=== PATIENT | male | born 1980 | race Caucasian/White ===

== ENCOUNTER 2017-10-06 21:08 | Emergency (ER) | payer MEDICAID ==
[2017-10-06] MEDS ORDERED: NORMAL SALINE 1000 ML 1,000 ML IV ONE ×2 (22:02→23:39)
[2017-10-06] MEDS ORDERED: ONDANSETRON HCL INJ/PF 4 MG/2 ML SDV IV ONE (22:02)
[2017-10-06] MEDS ORDERED: ACETAMINOPHEN 325 MG TABLET PO ONE (22:05)
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
[2017-10-06 22:50] LABS: HEMATOCRIT 53.5 % (37.9-51.0); HEMOGLOBIN 17.9 g/dL (13.5-17.0); MEAN CORPUSCULAR HEMOGLOBIN 27.8 pg (27.0-33.4); MEAN CORPUSCULAR HGB CONC 33.6 g/dL (32.0-36.0); MEAN CORPUSCULAR VOLUME 83 fl (80-97); PLATELET COUNT 272 10^3/uL (150-450); RED BLOOD COUNT 6.45 10^6/uL (4.35-5.55); RED CELL DISTRIBUTION WIDTH 14.2 % (11.5-14.0); WHITE BLOOD COUNT 12.8 10^3/uL (4.0-10.5)
--- NOTE | 2017-10-06 23:09 | RADIOLOGY REPORT (SQ) ---
EXAM DESCRIPTION: CHEST 2 VIEWS COMPLETED DATE/TIME: 10/06/2017 10:59 pm REASON FOR STUDY: thoracic PW COMPARISON: None. TECHNIQUE: Frontal and lateral radiographic views of the chest acquired. NUMBER OF VIEWS: Two view. LIMITATIONS: None. FINDINGS: LUNGS AND PLEURA: No opacities, masses or pneumothorax. No pleural effusion. MEDIASTINUM AND HILAR STRUCTURES: No masses or contour abnormalities. HEART AND VASCULAR STRUCTURES: Heart normal size. No evidence for failure. BONES: No acute findings. HARDWARE: None in the chest. OTHER: No other significant finding. IMPRESSION: NO SIGNIFICANT RADIOGRAPHIC FINDING IN THE CHEST. TECHNICAL DOCUMENTATION: JOB ID: [id number] [employer]- All Rights Reserved Reading location - IP/workstation name: [email or web address]
[2017-10-06 23:22] LABS: ABSOLUTE LYMPHOCYTES# (MANUAL) 0.3 10^3/uL (0.5-4.7); ABSOLUTE MONOCYTES # (MANUAL) 0.4 10^3/uL (0.1-1.4); ABSOLUTE NEUTROPHILS# (MANUAL) 12.2 10^3/uL (1.7-8.2); BASOPHILS % (MANUAL) 0 % (0-2); EOSINOPHILS % (MANUAL) 0 % (0-6); LYMPHOCYTES % (MANUAL) 2 % (13-45); MONOCYTES % (MANUAL) 3 % (3-13); SEGMENTED NEUTROPHILS % (MAN) 95 % (42-78); TOTAL CELLS COUNTED 100
[2017-10-06 23:23] LABS: ANISOCYTOSIS SLIGHT; PLATELET COMMENT ADEQUATE; TOXIC GRANULATION SLIGHT
[2017-10-06 23:43] LABS: ALANINE AMINOTRANSFERASE 48 U/L (21-72); ALBUMIN 3.9 g/dL (3.5-5.0); ALKALINE PHOSPHATASE 49 U/L (38-126); ANION GAP 11 (5-19); ASPARTATE AMINO TRANSFERASE 30 U/L (17-59); BILIRUBIN,DIRECT 0.2 mg/dL (0.0-0.4); BILIRUBIN,TOTAL 0.9 mg/dL (0.2-1.3); BLOOD UREA NITROGEN 20 mg/dL (7-20); CALCIUM 9.3 mg/dL (8.4-10.2); CARBON DIOXIDE 23 mmol/L (22-30); CHLORIDE 102 mmol/L (98-107); CREATINE KINASE 172 U/L (55-170); GLUCOSE 104 mg/dL (75-110); LIPASE 116.3 U/L (23-300); POTASSIUM 4.7 mmol/L (3.6-5.0); SODIUM 135.8 mmol/L (137-145); TOTAL PROTEIN 6.7 g/dL (6.3-8.2)
[2017-10-07] MEDS ORDERED: KETOROLAC TROMETHAMINE INJ/PF 30 MG/1 ML SDV IV ONE (00:22)
[2017-10-07] MEDS ORDERED: DIPHENHYDRAMINE HCL 50 MG/ML VIAL IV ONE ×2 (00:22→01:20)
[2017-10-07] MEDS ORDERED: PROCHLORPERAZINE EDISYLATE INJ 10 MG/2 ML VIAL IV ONE (00:22)
[2017-10-07 00:49] LABS: APPEARANCE,URINE CLEAR; BILIRUBIN,URINE NEGATIVE (NEGATIVE); COLOR,URINE YELLOW; GLUCOSE, URINE NEGATIVE (NEGATIVE); KETONES,URINE NEGATIVE (NEGATIVE); LEUKOCYTE ESTERASE,URINE NEGATIVE (NEGATIVE); NITRITE,URINE NEGATIVE (NEGATIVE); PROTEIN,URINE NEGATIVE (NEGATIVE); URINE SPECIFIC GRAVITY 1.011; UROBILINOGEN,URINE NEGATIVE mg/dL (<2.0)
[2017-10-07] MEDS ORDERED: NORMAL SALINE 1000 ML 1,000 ML IV ONE (00:49)
[2017-10-07] MEDS ORDERED: NORMAL SALINE 1000 ML 1,000 ML IV PRN (00:54)
[2017-10-07 01:31] LABS: URINE AMPHETAMINES SCREEN NEGATIVE; URINE BARBITURATES SCREEN NEGATIVE; URINE BENZODIAZEPINES SCREEN NEGATIVE; URINE COCAINE SCREEN NEGATIVE; URINE MARIJUANA (THC) SCREEN NEGATIVE; URINE METHADONE SCREEN UNCONFIRMED POSITIVE; URINE PHENCYCLIDINE SCREEN NEGATIVE
--- NOTE | 2017-10-07 02:00 | RADIOLOGY REPORT (SQ) ---
EXAM DESCRIPTION: CT HEAD WITHOUT CLINICAL HISTORY: MARCOS COMPARISON: None available TECHNIQUE: Axial CT of the head obtained from the skull apex to the skull base without contrast. FINDINGS: No acute intracranial hemorrhage identified. No mass, mass effect, shift of the midline, abnormal extra-axial fluid collection or CT evidence of acute ischemic change identified. The ventricular system is unremarkable. No acute abnormalities of the supratentorial white matter, basal ganglia, cerebellum, or brainstem. The visualized paranasal sinuses and the mastoids are clear. No skull fracture identified. Visualized orbits and globes are unremarkable. DLP:1070.38 mGy-cm IMPRESSION: 1. No acute intracranial abnormality identified. This exam was performed according to our departmental dose-optimization program, which includes automated exposure control, adjustment of the mA and/or kV according to patient size and/or use of iterative reconstruction technique.
--- NOTE | 2017-10-07 02:13 | RADIOLOGY REPORT (SQ) ---
EXAM DESCRIPTION: CT ABDOMEN AND PELVIS WITH CONTRAST CLINICAL HISTORY: LLQ pain, low back pain COMPARISON: 01/11/2013 TECHNIQUE: CT of the abdomen and pelvis performed following IV administration of 90 mL of Isovue-370. Delayed images obtained. DLP: 1345.63 mGycm FINDINGS: Lung Bases: The visualized lung bases are clear. Bones: No destructive bone lesions identified. Intramedullary esequiel in the left femur partially visualized. Abdomen: Liver: The liver has normal size and density. No intrahepatic mass or biliary dilatation. Gallbladder: No calcified gallstones. Spleen, Pancreas, and Adrenal Glands: The spleen, pancreas, and adrenal glands are unremarkable. Kidneys: The kidneys have normal size and contour without evidence of solid mass or hydronephrosis. Small hypodensities are too small fracture CT examination. Minimal nonspecific perinephric fat stranding. Vasculature: The aorta and IVC have normal caliber and position. The portal vein is patent. The proximal visceral and renal arteries are patent. Stomach: The stomach and duodenum have normal course. Other: No free intraperitoneal air. No free fluid or lymphadenopathy. Pelvis: Bladder: Urinary bladder is unremarkable. Bowel: No dilated loops of large or small bowel. Appendix: Normal appendix. Pelvis: Prostate is not enlarged. IMPRESSION: 1. No acute inflammatory or obstructive process identified. This exam was performed according to our departmental dose-optimization program, which includes automated exposure control, adjustment of the mA and/or kV according to patient size and/or use of iterative reconstruction technique.
[2017-10-07 03:40] VITALS: BP 134/51
== END 2017-10-07 03:40 | disposition home or self-care (01) ==
LOC: ER 21:08
DX: S09.90XA Unspecified injury of head, initial encounter (principal); S31.030A Puncture wound without foreign body of lower back and pelvis without penetration into retroperitoneum, initial encounter; R10.32 Left lower quadrant pain; R11.2 Nausea with vomiting, unspecified; W20.8XXA Other cause of strike by thrown, projected or falling object, initial encounter; F17.200 Nicotine dependence, unspecified, uncomplicated; Z88.0 Allergy status to penicillin
CPT/HCPCS: 96376; 99284; 96361; 96374; 96375; 36415; 82550; 83690; 85025; 80053; 81001; 80307; 71046; 70450; 74177; J3490; J1200; J1885; J0780; J2405; J7030 ×2

== ENCOUNTER 2019-08-06 13:44 | Inpatient (IN) | payer SELFPAY ==
[2019-08-06] MEDS ORDERED: NORMAL SALINE 1000 ML 1,000 ML IV ONE (14:11)
--- NOTE | 2019-08-06 14:13 | ER Document Report ---
ED Medical Screen (RME) - General Chief Complaint: Abdominal Pain Stated Complaint: BACK PAIN,ABDOMINAL PAIN,NAUSEA Time Seen by Provider: 08/06/19 14:07 Notes: HPI: 39-year-old male presenting to the emergency department complaining about being concerned he is in rhabdomyolysis. Patient had a heavy workout yesterday and today at the gym and when he went to urinate this morning the urine was "Dr. Diana Brown". Complains of discomfort across the lower abdomen and also in the back. Patient states he felt like this for years ago when he had rhabdomyolysis. Denies chest pain shortness of breath I have greeted and performed a rapid initial assessment of this patient. A comprehensive ED assessment and evaluation of the patient, analysis of test results and completion of the medical decision making process will be conducted by additional ED providers PHYSICAL EXAMINATION: GENERAL: Well-appearing, well-nourished and in mild acute distress. HEAD: Atraumatic, normocephalic. EYES: sclera anicteric, conjunctiva are normal. ENT: Moist mucous membranes. NECK: Normal range of motion LUNGS: Normal work of breathing, clear to auscultation HEART: 2+ radial pulses bilaterally, regular rate and rhythm ABD: limited by positioning for exam in triage. Minimal tenderness across the lower abdomen on palpation EXTREMITIES: no pitting or edema. No cyanosis. NEUROLOGICAL: No focal neurological deficits. Moves all extremities spontaneou sly and on command. PSYCH: Normal mood, normal affect. SKIN: Warm, Dry, normal turgor, no rashes or lesions noted. TRAVEL OUTSIDE OF THE [place] IN LAST 30 DAYS: No - Related Data Allergies/Adverse Reactions: Penicillins Allergy (Verified 08/06/19 14:07) Hives Past Medical History - Past Medical History Cardiac Medical History: Reports: Hx Hypertension Renal/ Medical History: Denies: Hx Peritoneal Dialysis Past Surgical History: Reports: Hx Orthopedic Surgery - left femur, left shoulder - Immunizations Immunizations up to date: Yes Hx Diphtheria, Pertussis, Tetanus Vaccination: Yes Physical Exam - Vital signs Vitals: Temp Pulse Resp BP Pulse Ox 98.1 F 99 18 183/87 H 95 08/06/19 14:02 08/06/19 14:02 08/06/19 14:02 08/06/19 14:02 08/06/19 14:02 Course - Vital Signs Vital signs: Temp Pulse Resp BP Pulse Ox 98.1 F 99 18 183/87 H 95 08/06/19 14:02 08/06/19 14:02 08/06/19 14:02 08/06/19 14:02 08/06/19 14:02
[2019-08-06 14:44] LABS: ABSOLUTE BASOPHILS # (AUTO) 0.1 10^3/uL (0.0-0.2); ABSOLUTE EOSINOPHILS # (AUTO) 0.1 10^3/uL (0.0-0.6); ABSOLUTE LYMPHOCYTES (AUTO) 1.2 10^3/uL (0.5-4.7); ABSOLUTE MONOCYTES (AUTO) 1.2 10^3/uL (0.1-1.4); ABSOLUTE NEUT (AUTO) 15.4 10^3/uL (1.7-8.2); APPEARANCE,URINE CLEAR; BASOPHILS % (AUTO) 0.4 % (0-2); BILIRUBIN,URINE NEGATIVE (NEGATIVE); COLOR,URINE AMBER; EOSINOPHILS % (AUTO) 0.7 % (0-6); GLUCOSE, URINE NEGATIVE (NEGATIVE); HEMATOCRIT 53.1 % (37.9-51.0); HEMOGLOBIN 18.7 g/dL (13.5-17.0); KETONES,URINE NEGATIVE (NEGATIVE); LEUKOCYTE ESTERASE,URINE NEGATIVE (NEGATIVE); LYMPHOCYTES % (AUTO) 6.9 % (13-45); MEAN CORPUSCULAR HEMOGLOBIN 29.3 pg (27.0-33.4); MEAN CORPUSCULAR HGB CONC 35.2 g/dL (32.0-36.0); MEAN CORPUSCULAR VOLUME 83 fl (80-97); MONOCYTES % (AUTO) 6.7 % (3-13); NITRITE,URINE NEGATIVE (NEGATIVE); PLATELET COUNT 208 10^3/uL (150-450); PROTEIN,URINE 100 mg/dL (NEGATIVE); RED BLOOD COUNT 6.38 10^6/uL (4.35-5.55); RED CELL DISTRIBUTION WIDTH 13.9 % (11.5-14.0); SEGMENTED NEUTROPHILS % (AUTO) 85.3 % (42-78); TOTAL CELLS COUNTED % (AUTO) 100 %; URINE SPECIFIC GRAVITY 1.014; UROBILINOGEN,URINE NEGATIVE mg/dL (<2.0)
[2019-08-06 15:06] LABS: ALBUMIN 5.2 g/dL (3.5-5.0); ALKALINE PHOSPHATASE 61 U/L (38-126); ANION GAP 12 (5-19); BILIRUBIN,DIRECT 0.3 mg/dL (0.0-0.4); BILIRUBIN,TOTAL 0.6 mg/dL (0.2-1.3); BLOOD UREA NITROGEN 16 mg/dL (7-20); CALCIUM 9.7 mg/dL (8.4-10.2); CARBON DIOXIDE 29 mmol/L (22-30); CHLORIDE 98 mmol/L (98-107); GLUCOSE 88 mg/dL (75-110); POTASSIUM 4.7 mmol/L (3.6-5.0); TOTAL PROTEIN 8.6 g/dL (6.3-8.2)
[2019-08-06 16:01] LABS: ASPARTATE AMINO TRANSFERASE 2006 U/L (17-59)
[2019-08-06 16:16] LABS: CREATINE KINASE > 160000 U/L (55-170)
[2019-08-06] MEDS ORDERED: NORMAL SALINE 1000 ML 1,000 ML IV PRN ×2 (16:24→17:33)
[2019-08-06] MEDS ORDERED: ONDANSETRON HCL INJ/PF 4 MG/2 ML SDV IV ONE (17:20)
--- NOTE | 2019-08-06 17:22 | ER Document Report ---
ED General - General Chief Complaint: Low Back Pain Stated Complaint: BACK PAIN,ABDOMINAL PAIN,NAUSEA Time Seen by Provider: 08/06/19 14:07 TRAVEL OUTSIDE OF THE [place] IN LAST 30 DAYS: No - HPI Notes: 39-year-old male presenting with muscle soreness after heavy workout in the gym and he also notes that his urine has a dark brown color. He was concerned about this and looked up the symptoms on the Internet and basically diagnosed himself with rhabdomyolysis. He presents now with his for further evaluation. He says he is slightly nauseated but has not vomited. He denies fever. He denies shortness of breath. He has generalized myalgias. 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 He says he has been "clean" for more than 5 years. Denies consumption of alcohol. He vapes daily. Also has a history of hypertension. He says he has been noncompliant with meds for over 6 weeks. Currently working in construction. Notes that he has had surgery on his lower leg for fracture in the past. No other hospitalizations or serious illnesses. - Related Data Allergies/Adverse Reactions: Penicillins Allergy (Verified 08/06/19 14:07) Hives Past Medical History - General Information source: Patient, Relative - Social History Smoking Status: Current Every Day Smoker Chew tobacco use (# tins/day): No Frequency of alcohol use: None Drug Abuse: None Family History: Reviewed & Not Pertinent Patient has suicidal ideation: No Patient has homicidal ideation: No - Past Medical History Cardiac Medical History: Reports: Hx Hypertension Renal/ Medical History: Denies: Hx Peritoneal Dialysis Past Surgical History: Reports: Hx Orthopedic Surgery - left femur, left shoulder - Immunizations Immunizations up to date: Yes Hx Diphtheria, Pertussis, Tetanus Vaccination: Yes Review of Systems - Review of Systems Notes: Constitutional: Negative for fever. HENT: Negative for sore throat. Eyes: Negative for visual changes. Cardiovascular: Negative for chest pain. Respiratory: Negative for shortness of breath. Gastrointestinal: As per HPI. Genitourinary: As per HPI. Musculoskeletal: Generalized myalgias. Skin: Negative for rash. Neurological: Negative for headaches, weakness or numbness. 10 point ROS negative except as marked above and in HPI. Physical Exam - Vital signs Vitals: Temp Pulse Resp BP Pulse Ox 98.1 F 99 18 183/87 H 95 08/06/19 14:02 08/06/19 14:02 08/06/19 14:02 08/06/19 14:02 08/06/19 14:02 - Notes Notes: GENERAL: Well-developed well-nourished appearing in no acute distress. SKIN: Good turgor no rashes. HEAD: Normocephalic atraumatic. EYES: PERRLA. EOMI. Conjunctivae and sclerae clear. EARS: CANALS AND TMS CLEAR. NOSE: CLEAR. MOUTH: Moist mucosa. Good dentition. No stridor or edema. No drooling. NECK: Supple. No masses or thyromegaly. No adenopathy. Carotids 2+ without bruits. No JVD. BACK: Mild diffuse tenderness. CHEST: Respirations unlabored. Breath sounds clear and symmetrical. HEART: Regular rhythm. No murmur gallop or rub. ABDOMEN: Soft nontender without masses, organomegaly or rebound. Bowel sounds normally active. No bruits. GENITALIA: Deferred. EXTREMITIES: No edema. No calf tenderness. Cap refill less than 1.5 seconds. Dorsalis pedis and posterior tibial pulses 3+ and symmetrical. NEUROLOGICAL: GCS 15. Alert and oriented x3. Normal gait. Fluent speech. Cranial nerves II through XII intact. Sensorimotor and cerebellar normal. Normal tone. PSYCHIATRIC: Appropriate affect. Course - Re-evaluation Re-evalutation: 08/06/19 17:21 Patient has obvious exercise-induced rhabdomyolysis. We are hydrating with normal saline. Patient has been accepted for admission to the hospitalist service by Dr. Mayen. - Vital Signs Vital signs: Temp Pulse Resp BP Pulse Ox 98.1 F 99 18 183/87 H 95 08/06/19 14:02 08/06/19 14:02 08/06/19 14:02 08/06/19 14:02 08/06/19 14:02 - Laboratory Result Diagrams: 08/06/19 14:22 08/06/19 14:22 Laboratory results interpreted by me: 08/06/19 08/06/19 08/06/19 14:22 14:22 14:22 WBC 18.0 H RBC 6.38 H Hgb 18.7 H Hct 53.1 H Lymph % (Auto) 6.9 L Absolute Neuts (auto) 15.4 H Seg Neutrophils % 85.3 H AST 2006 H ALT 310 H Creatine Kinase > 981426 H Total Protein 8.6 H Albumin 5.2 H Urine Protein 100 H Urine Blood LARGE H Discharge - Discharge Clinical Impression: Rhabdomyolysis Qualifiers: Rhabdomyolysis type: non-traumatic Qualified Code(s): M62.82 - Rhabdomyolysis Condition: Good Disposition: ADMITTED INPATIENT Admitting Provider: [facility]ble (Hospitalist) Unit Admitted: Medical Floor
[2019-08-06] MEDS ORDERED: IPRATROPIUM/ALBUTEROL 0.5-2.5 MG/3 ML AMPUL NEB PRN (17:34)
[2019-08-06] MEDS ORDERED: TEMAZEPAM 15 MG CAPSULE PO PRN (17:34)
[2019-08-06] MEDS ORDERED: PROMETHAZINE HCL INJ 25 MG/1 ML VIAL IV PRN (17:34)
[2019-08-06] MEDS ORDERED: METOPROLOL TARTRATE PF/INJ 5 MG/5 ML SDV IV PRN (17:51)
--- NOTE | 2019-08-06 17:51 | PDOC H&P ---
History of Present Illness History of Present Illness: MELE ALMEIDA is a 39 year old male past medical history of untreated hypertension presenting to ED complaining of muscle sore and cola colored urine after heavy workout session at the gym. Patient is attending gym regularly but recently but had a stopped for a while and recently went back to gym with a friend where the above did a heavy workout session weight lifting. Patient is stating the following day he started feeling sore around his neck, shoulders, abdomen, lower extremity patient with nausea, he also noted his urine to be turning darker. Patient looked up his symptoms over the Internet and found out that he may have rhabdomyolysis. 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 In ED was found to have a CK level of more than 160,000 and AST of 2000. Ho spitalist consulted for admission. Past Medical History Cardiac Medical History: Reports: Hypertension Past Surgical History Past Surgical History: Reports: Orthopedic Surgery - left femur, left shoulder Social History Smoking Status: Current Every Day Smoker Electronic Cigarette use?: Yes Family History Family History: Reviewed & Not Pertinent Parental Family History Reviewed: Yes Children Family History Reviewed: Yes Sibling(s) Family History Reviewed.: Yes Medication/Allergy Allergies/Adverse Reactions: Penicillins Allergy (Verified 08/06/19 14:07) Hives Review of Systems Review of Systems: As per HPI Physical Exam Vital Signs: Temp Pulse Resp BP Pulse Ox 98.1 F 99 18 183/87 H 95 08/06/19 14:02 08/06/19 14:02 08/06/19 14:02 08/06/19 14:02 08/06/19 14:02 Intake & Output 08/05/19 08/06/19 08/07/19 06:59 06:59 06:59 Intake Total 1000 Balance 1000 Weight 88.9 kg General appearance: PRESENT: no acute distress, well-developed, well-nourished Head exam: PRESENT: atraumatic, normocephalic Respiratory exam: PRESENT: clear to auscultation david. ABSENT: rales, rhonchi, wheezes Cardiovascular exam: PRESENT: RRR. ABSENT: diastolic murmur, rubs, systolic murmur GI/Abdominal exam: PRESENT: normal bowel sounds, soft. ABSENT: distended, guarding, mass, organolmegaly, rebound, tenderness Musculoskeletal exam: PRESENT: tenderness - Tenderness over trapezius, abdominal, biceps, triceps and quadriceps. Neurological exam: PRESENT: alert, awake, oriented to person, oriented to place, oriented to time, oriented to situation, CN II-XII grossly intact. ABSENT: motor sensory deficit Results Laboratory Results: 08/06/19 14:22 08/06/19 14:22 08/06/19 08/06/19 08/06/19 14:22 14:22 14:22 WBC 18.0 H RBC 6.38 H Hgb 18.7 H Hct 53.1 H MCV 83 MCH 29.3 MCHC 35.2 RDW 13.9 Plt Count 208 Seg Neutrophils % 85.3 H Sodium 138.5 Potassium 4.7 Chloride 98 Carbon Dioxide 29 Anion Gap 12 BUN 16 Creatinine 1.06 Est GFR ( Amer) > 60 Glucose 88 Calcium 9.7 Total Bilirubin 0.6 AST 2006 H Alkaline Phosphatase 61 Total Protein 8.6 H Albumin 5.2 H Urine Color MONICA Urine Appearance CLEAR Urine pH 6.0 Ur Specific [place] 1.014 Urine Protein 100 H Urine Glucose (UA) NEGATIVE Urine Ketones NEGATIVE Urine Blood LARGE H Urine Nitrite NEGATIVE Ur Leukocyte Esterase NEGATIVE Urine WBC (Auto) 1 Urine RBC (Auto) 0 08/06/19 14:22 Creatine Kinase > 040107 H Assessment and Plan - Diagnosis (1) Rhabdomyolysis Qualifiers: Rhabdomyolysis type: non-traumatic Qualified Code(s): M62.82 - Rhabdomyolysis Is this a current diagnosis for this admission?: Yes Plan: Due to heavy workout session including heavy lifting. Denies any trauma. Presented with CK level more than 160,000. Admit to IMCU, aggressive volume resuscitation guided by volume status, BMP every 8 hours, monitor electrolytes and replace as needed, monitor liver function, monitor kidney function, strict in and out. (2) Dehydration Is this a current diagnosis for this admission?: Yes Plan: Aggressive volume resuscitation guided by volume status. Monitor vitals. Monitor in and out. (3) Elevated LFTs Is this a current diagnosis for this admission?: Yes Plan: Likely due to rhabdomyolysis. Predominantly AST. Denies any history of hepatitis. Treat underlying rhabdomyolysis. Monitor LFTs.
[2019-08-06] MEDS: TIZANIDINE HCL 4 MG TABLET PO SCH (18:03)
[2019-08-06] MEDS: MORPHINE SULFATE 10 MG/ML INJ IV PRN (18:18)
[2019-08-06 18:30] LABS: URINE AMPHETAMINES SCREEN NEGATIVE; URINE BARBITURATES SCREEN NEGATIVE; URINE BENZODIAZEPINES SCREEN NEGATIVE; URINE COCAINE SCREEN NEGATIVE; URINE MARIJUANA (THC) SCREEN NEGATIVE; URINE PHENCYCLIDINE SCREEN NEGATIVE
[2019-08-06 18:40] LABS: URINE METHADONE SCREEN UNCONFIRMED POSITIVE
[2019-08-06] MEDS: HEPARIN SOD (PORCINE) 5,000 UNIT/ML 1 ML VIAL SUBCUT SCH (21:29)
[2019-08-06] MEDS: HYDROMORPHONE HCL INJ/PF 2 MG/ML AMPULE IV PRN (22:34)
[2019-08-07] MEDS: MORPHINE SULFATE 10 MG/ML INJ IV PRN ×3 (01:45→20:45)
[2019-08-07] MEDS: HYDRALAZINE HCL INJ/PF 20 MG/1 ML SDV IV PRN ×2 (04:42→20:45)
[2019-08-07] MEDS: METHADONE HCL 10 MG TABLET PO SCH (05:11)
[2019-08-07] MEDS: HEPARIN SOD (PORCINE) 5,000 UNIT/ML 1 ML VIAL SUBCUT SCH ×3 (05:12→21:05)
[2019-08-07] MEDS: PANTOPRAZOLE SODIUM 40 MG TABLET.DR PO SCH ×2 (05:16→17:08)
[2019-08-07 06:19] LABS: ABSOLUTE EOSINOPHILS # (AUTO) 0.3 10^3/uL (0.0-0.6); ABSOLUTE LYMPHOCYTES (AUTO) 1.6 10^3/uL (0.5-4.7); ABSOLUTE MONOCYTES (AUTO) 0.6 10^3/uL (0.1-1.4); ABSOLUTE NEUT (AUTO) 7.9 10^3/uL (1.7-8.2); BASOPHILS % (AUTO) 0.4 % (0-2); EOSINOPHILS % (AUTO) 2.9 % (0-6); HEMATOCRIT 50.8 % (37.9-51.0); HEMOGLOBIN 17.6 g/dL (13.5-17.0); LYMPHOCYTES % (AUTO) 15.2 % (13-45); MEAN CORPUSCULAR HEMOGLOBIN 29.1 pg (27.0-33.4); MEAN CORPUSCULAR HGB CONC 34.7 g/dL (32.0-36.0); MEAN CORPUSCULAR VOLUME 84 fl (80-97); PLATELET COUNT 191 10^3/uL (150-450); RED BLOOD COUNT 6.05 10^6/uL (4.35-5.55); RED CELL DISTRIBUTION WIDTH 14.1 % (11.5-14.0); SEGMENTED NEUTROPHILS % (AUTO) 75.5 % (42-78); TOTAL CELLS COUNTED % (AUTO) 100 %; WHITE BLOOD COUNT 10.4 10^3/uL (4.0-10.5)
[2019-08-07 07:29] LABS: BLOOD UREA NITROGEN 14 mg/dL (7-20); CALCIUM 8.9 mg/dL (8.4-10.2); CARBON DIOXIDE 27 mmol/L (22-30); CHLORIDE 106 mmol/L (98-107); GLUCOSE 101 mg/dL (75-110); POTASSIUM 4.1 mmol/L (3.6-5.0)
[2019-08-07 07:53] LABS: ANION GAP 4 (5-19); CREATINE KINASE > 160000 U/L (55-170)
[2019-08-07] MEDS: HYDROMORPHONE HCL INJ/PF 2 MG/ML AMPULE IV PRN ×2 (08:32→22:24)
[2019-08-07] MEDS: TIZANIDINE HCL 4 MG TABLET PO SCH ×3 (09:22→17:08)
--- NOTE | 2019-08-07 10:56 | PDOC PROGRESS REPORT ---
Subjective Progress Note for:: 08/07/19 Subjective:: MELE ALMEIDA is a 39 year old male past medical history of untreated hypertension presenting to ED complaining of muscle sore and cola colored urine after heavy workout session at the gym. Patient is attending gym regularly but recently but had a stopped for a while and recently went back to gym with a friend where the above did a heavy workout session weight lifting. Patient is stating the following day he started feeling sore around his neck, shoulders, abdomen, lower extremity patient with nausea, he also noted his urine to be turning darker. Patient looked up his symptoms over the Internet and found out that he may have rhabdomyolysis. 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 In ED was found to have a CK level of more than 160,000 and AST of 2000. Hospitalist consulted for admission. 08/07/2019. Overnight patient's fluid had to be lowered as he had reported that he was feeling a bit puffy, this morning resting in bed in no apparent distress, complaining of persistent generalized muscle sore, having normal bowel and bladder movements, denies any fever, chills, nausea, vomiting, diarrhea, constipation or any urinary symptoms. Reason For Visit: RHABDOMYOLYSIS, ELEVATED LFTS Physical Exam Vital Signs: Temp Pulse Resp BP Pulse Ox 97.9 F 59 L 17 138/71 H 99 08/07/19 04:00 08/07/19 07:00 08/07/19 04:00 08/07/19 05:20 08/07/19 04:00 Intake & Output 08/06/19 08/07/19 08/08/19 06:59 06:59 06:59 Intake Total 1999 Output Total 925 Balance 1075 Weight 87.1 kg General appearance: PRESENT: no acute distress, well-developed, well-nourished Head exam: PRESENT: atraumatic, normocephalic Respiratory exam: PRESENT: clear to auscultation david. ABSENT: rales, rhonchi, wheezes Cardiovascular exam: PRESENT: RRR. ABSENT: diastolic murmur, rubs, systolic murmur GI/Abdominal exam: PRESENT: normal bowel sounds, soft. ABSENT: distended, guarding, mass, organolmegaly, rebound, tenderness Musculoskeletal exam: PRESENT: tenderness - Generalized Neurological exam: PRESENT: alert, awake, oriented to person, oriented to place, oriented to time, oriented to situation, CN II-XII grossly intact. ABSENT: motor sensory deficit Skin exam: PRESENT: dry, intact, warm. ABSENT: cyanosis, rash Results Laboratory Results: 08/07/19 04:25 08/07/19 04:25 08/06/19 08/06/19 08/06/19 14:22 14:22 14:22 WBC 18.0 H RBC 6.38 H Hgb 18.7 H Hct 53.1 H MCV 83 MCH 29.3 MCHC 35.2 RDW 13.9 Plt Count 208 Seg Neutrophils % 85.3 H Sodium 138.5 Potassium 4.7 Chloride 98 Carbon Dioxide 29 Anion Gap 12 BUN 16 Creatinine 1.06 Est GFR ( Amer) > 60 Glucose 88 Calcium 9.7 Total Bilirubin 0.6 AST 2006 H Alkaline Phosphatase 61 Total Protein 8.6 H Albumin 5.2 H Urine Color MONICA Urine Appearance CLEAR Urine pH 6.0 Ur Specific [place] 1.014 Urine Protein 100 H Urine Glucose (UA) NEGATIVE Urine Ketones NEGATIVE Urine Blood LARGE H Urine Nitrite NEGATIVE Ur Leukocyte Esterase NEGATIVE Urine WBC (Auto) 1 Urine RBC (Auto) 0 08/07/19 08/07/19 04:25 04:25 WBC 10.4 RBC 6.05 H Hgb 17.6 H Hct 50.8 MCV 84 MCH 29.1 MCHC 34.7 RDW 14.1 H Plt Count 191 Seg Neutrophils % 75.5 Sodium 137.3 Potassium 4.1 Chloride 106 Carbon Dioxide 27 Anion Gap 4 L BUN 14 Creatinine 1.02 Est GFR ( Amer) > 60 Glucose 101 Calcium 8.9 Total Bilirubin AST Alkaline Phosphatase Total Protein Albumin Urine Color Urine Appearance Urine pH Ur Specific [place] Urine Protein Urine Glucose (UA) Urine Ketones Urine Blood Urine Nitrite Ur Leukocyte Esterase Urine WBC (Auto) Urine RBC (Auto) 08/06/19 08/07/19 08/07/19 14:22 04:25 04:25 Creatine Kinase > 152143 H > 899575 H CK-MB (CK-2) 21.50 H Assessment and Plan - Diagnosis (1) Rhabdomyolysis Qualifiers: Rhabdomyolysis type: non-traumatic Qualified Code(s): M62.82 - Rhabdomyolysis Is this a current diagnosis for this admission?: Yes Plan: Due to heavy workout session including heavy lifting. Denies any trauma. Presented with CK level >160,000. CK level is still read as >160,000. Probably much higher in reality. CBC CMP WNL. Renal function WNL. Adequate urine output. Continue aggressive volume resuscitation guided by volume status Monitor electrolytes and replace as needed. Monitor liver function. Monitor kidney function. Strict in and out. (2) Dehydration Is this a current diagnosis for this admission?: Yes Plan: Volume replete. Continue volume resuscitation guided by volume status. Monitor vitals. Monitor in and out. (3) Elevated LFTs Is this a current diagnosis for this admission?: Yes Plan: Likely due to rhabdomyolysis. Predominantly AST. Denies any history of hepatitis. Treat underlying rhabdomyolysis. Monitor LFTs.
[2019-08-07 13:48] LABS: ALBUMIN 3.8 g/dL (3.5-5.0); ALKALINE PHOSPHATASE 45 U/L (38-126); BILIRUBIN,DIRECT 0.3 mg/dL (0.0-0.4); BILIRUBIN,TOTAL 0.5 mg/dL (0.2-1.3); TOTAL PROTEIN 6.8 g/dL (6.3-8.2)
[2019-08-07 14:04] LABS: ASPARTATE AMINO TRANSFERASE 2489 U/L (17-59)
[2019-08-07] MEDS: NORMAL SALINE 1000 ML 1,000 ML IV PRN ×2 (14:15→17:04)
[2019-08-08] MEDS: NORMAL SALINE 1000 ML 1,000 ML IV PRN ×4 (04:35→23:58)
[2019-08-08] MEDS: HYDROMORPHONE HCL INJ/PF 2 MG/ML AMPULE IV PRN ×3 (04:35→23:57)
[2019-08-08] MEDS: HYDRALAZINE HCL INJ/PF 20 MG/1 ML SDV IV PRN ×2 (04:36→23:57)
[2019-08-08] MEDS: METHADONE HCL 10 MG TABLET PO SCH (05:26)
[2019-08-08] MEDS: HEPARIN SOD (PORCINE) 5,000 UNIT/ML 1 ML VIAL SUBCUT SCH ×3 (05:27→21:27)
[2019-08-08 06:09] LABS: HEMATOCRIT 47.9 % (37.9-51.0); HEMOGLOBIN 16.6 g/dL (13.5-17.0); MEAN CORPUSCULAR HGB CONC 34.6 g/dL (32.0-36.0); MEAN CORPUSCULAR VOLUME 84 fl (80-97); PLATELET COUNT 157 10^3/uL (150-450); RED BLOOD COUNT 5.71 10^6/uL (4.35-5.55); RED CELL DISTRIBUTION WIDTH 13.8 % (11.5-14.0); WHITE BLOOD COUNT 7.1 10^3/uL (4.0-10.5)
[2019-08-08 06:32] LABS: ALBUMIN 3.6 g/dL (3.5-5.0); ALKALINE PHOSPHATASE 44 U/L (38-126); ANION GAP 7 (5-19); BILIRUBIN,DIRECT 0.3 mg/dL (0.0-0.4); BILIRUBIN,TOTAL 0.3 mg/dL (0.2-1.3); BLOOD UREA NITROGEN 10 mg/dL (7-20); CALCIUM 9.6 mg/dL (8.4-10.2); CARBON DIOXIDE 27 mmol/L (22-30); CHLORIDE 107 mmol/L (98-107); GLUCOSE 117 mg/dL (75-110); POTASSIUM 4.4 mmol/L (3.6-5.0); TOTAL PROTEIN 6.3 g/dL (6.3-8.2)
[2019-08-08] MEDS: PANTOPRAZOLE SODIUM 40 MG TABLET.DR PO SCH ×2 (06:42→17:13)
[2019-08-08 07:13] LABS: ASPARTATE AMINO TRANSFERASE 1389 U/L (17-59)
[2019-08-08 07:23] LABS: CREATINE KINASE 92429 U/L (55-170)
[2019-08-08] MEDS: MORPHINE SULFATE 10 MG/ML INJ IV PRN (08:05)
[2019-08-08] MEDS: TIZANIDINE HCL 4 MG TABLET PO SCH ×3 (09:51→17:13)
--- NOTE | 2019-08-08 11:55 | PDOC PROGRESS REPORT ---
Subjective Progress Note for:: 08/08/19 Subjective:: MELE ALMEIDA is a 39 year old male past medical history of untreated hypertension presenting to ED complaining of muscle sore and cola colored urine after heavy workout session at the gym. Patient is attending gym regularly but recently but had a stopped for a while and recently went back to gym with a friend where the above did a heavy workout session weight lifting. Patient is stating the following day he started feeling sore around his neck, shoulders, abdomen, lower extremity patient with nausea, he also noted his urine to be turning darker. Patient looked up his symptoms over the Internet and found out that he may have rhabdomyolysis. 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 In ED was found to have a CK level of more than 160,000 and AST of 2000. Hospitalist consulted for admission. 08/07/2019. Overnight patient's fluid had to be lowered as he had reported that he was feeling a bit puffy, this morning resting in bed in no apparent distress, complaining of persistent generalized muscle sore, having normal bowel and bladder movements, denies any fever, chills, nausea, vomiting, diarrhea, constipation or any urinary symptoms. 08/08/2019. No acute events overnight. Patient stating that he could not sleep much due to pain otherwise denies any fever, chills, nausea, vomiting, diarrhea, constipation or any urinary symptoms. P.o. tolerant. Having normal bowel and bladder movements. Reason For Visit: RHABDOMYOLYSIS, ELEVATED LFTS Physical Exam Vital Signs: Temp Pulse Resp BP Pulse Ox 98.6 F 79 16 144/94 H 93 08/08/19 07:46 08/08/19 07:46 08/08/19 07:46 08/08/19 07:46 08/08/19 07:46 Intake & Output 08/07/19 08/08/19 08/09/19 06:59 06:59 07:59 Intake Total 1999 2718 1000 Output Total 925 1625 Balance 1075 1093 1000 Weight 87.1 kg 91.8 kg General appearance: PRESENT: no acute distress, well-developed, well-nourished Head exam: PRESENT: atraumatic, normocephalic Respiratory exam: PRESENT: clear to auscultation david. ABSENT: rales, rhonchi, wheezes Cardiovascular exam: PRESENT: RRR. ABSENT: diastolic murmur, rubs, systolic murmur GI/Abdominal exam: PRESENT: normal bowel sounds, soft. ABSENT: distended, guarding, mass, organolmegaly, rebound, tenderness Extremities exam: PRESENT: full ROM, tenderness. ABSENT: calf tenderness, clubbing, pedal edema Neurological exam: PRESENT: alert, awake, oriented to person, oriented to place, oriented to time, oriented to situation, CN II-XII grossly intact. ABSENT: motor sensory deficit Results Laboratory Results: 08/08/19 05:27 08/08/19 05:27 08/07/19 08/08/19 08/08/19 04:25 05:27 05:27 WBC 7.1 RBC 5.71 H Hgb 16.6 Hct 47.9 MCV 84 MCH 29.0 MCHC 34.6 RDW 13.8 Plt Count 157 Sodium 141.4 Potassium 4.4 Chloride 107 Carbon Dioxide 27 Anion Gap 7 BUN 10 Creatinine 0.78 Est GFR ( Amer) > 60 Glucose 117 H Calcium 9.6 Total Bilirubin 0.5 0.3 AST 2489 H 1389 H Alkaline Phosphatase 45 44 Total Protein 6.8 6.3 Albumin 3.8 3.6 08/06/19 08/07/19 08/07/19 14:22 04:25 04:25 Creatine Kinase > 444210 H > 252183 H CK-MB (CK-2) 21.50 H 08/08/19 05:27 Creatine Kinase 35229 H CK-MB (CK-2) Assessment and Plan - Diagnosis (1) Rhabdomyolysis Qualifiers: Rhabdomyolysis type: non-traumatic Qualified Code(s): M62.82 - Rhabdomyolysis Is this a current diagnosis for this admission?: Yes Plan: Due to heavy workout session including heavy lifting. Denies any trauma. Presented with CK level >160,000. CK trending down. CBC CMP WNL. Renal function WNL. Adequate urine output. Continue aggressive volume resuscitation guided by volume status Monitor electrolytes and replace as needed. Monitor liver function. Monitor kidney function. Strict in and out. (2) Elevated LFTs Is this a current diagnosis for this admission?: Yes Plan: Likely due to rhabdomyolysis. Predominantly AST. Presented with AST of 2005. LFTs are trending down. Denies any history of hepatitis. Monitor LFTs. LFTs tomorrow. (3) Dehydration Is this a current diagnosis for this admission?: Yes Plan: Volume replete. Continue volume resuscitation guided by volume status. Monitor vitals. Monitor in and out.
[2019-08-08] MEDS: MELATONIN 5 MG TABLET PO SCH (21:27)
[2019-08-08] MEDS: DIPHENHYDRAMINE HCL 25 MG CAPSULE PO PRN (23:51)
[2019-08-09] MEDS: METHADONE HCL 10 MG TABLET PO SCH (05:18)
[2019-08-09] MEDS: HEPARIN SOD (PORCINE) 5,000 UNIT/ML 1 ML VIAL SUBCUT SCH ×3 (05:19→23:03)
[2019-08-09] MEDS: PANTOPRAZOLE SODIUM 40 MG TABLET.DR PO SCH ×2 (06:25→17:12)
[2019-08-09] MEDS: NORMAL SALINE 1000 ML 1,000 ML IV PRN ×2 (06:25→12:09)
[2019-08-09 06:34] LABS: ALBUMIN 3.6 g/dL (3.5-5.0); ALKALINE PHOSPHATASE 39 U/L (38-126); ANION GAP 6 (5-19); BILIRUBIN,DIRECT 0.1 mg/dL (0.0-0.4); BILIRUBIN,TOTAL 0.3 mg/dL (0.2-1.3); BLOOD UREA NITROGEN 10 mg/dL (7-20); CALCIUM 9.4 mg/dL (8.4-10.2); CARBON DIOXIDE 26 mmol/L (22-30); CHLORIDE 108 mmol/L (98-107); GLUCOSE 102 mg/dL (75-110); POTASSIUM 4.3 mmol/L (3.6-5.0); TOTAL PROTEIN 6.1 g/dL (6.3-8.2)
[2019-08-09 07:09] LABS: ASPARTATE AMINO TRANSFERASE 1108 U/L (17-59)
[2019-08-09 07:10] LABS: CREATINE KINASE 69000 U/L (55-170)
[2019-08-09] MEDS: TIZANIDINE HCL 4 MG TABLET PO SCH ×3 (09:40→17:37)
--- NOTE | 2019-08-09 11:03 | PDOC PROGRESS REPORT ---
Subjective Progress Note for:: 08/09/19 Subjective:: MELE ALMEIDA is a 39 year old male past medical history of untreated hypertension presenting to ED complaining of muscle sore and cola colored urine after heavy workout session at the gym. Patient is attending gym regularly but recently but had a stopped for a while and recently went back to gym with a friend where the above did a heavy workout session weight lifting. Patient is stating the following day he started feeling sore around his neck, shoulders, abdomen, lower extremity patient with nausea, he also noted his urine to be turning darker. Patient looked up his symptoms over the Internet and found out that he may have rhabdomyolysis. 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 In ED was found to have a CK level of more than 160,000 and AST of 2000. Hospitalist consulted for admission. 08/07/2019. Overnight patient's fluid had to be lowered as he had reported that he was feeling a bit puffy, this morning resting in bed in no apparent distress, complaining of persistent generalized muscle sore, having normal bowel and bladder movements, denies any fever, chills, nausea, vomiting, diarrhea, constipation or any urinary symptoms. 08/08/2019. No acute events overnight. Patient stating that he could not sleep much due to pain otherwise denies any fever, chills, nausea, vomiting, diarrhea, constipation or any urinary symptoms. P.o. tolerant. Having normal bowel and bladder movements. 08/09/2019. No acute events overnight. Was able to sleep better last night as per generalized muscle so improving, in no apparent distress, denies any fever, chills, nausea, vomiting, diarrhea, constipation or any urinary symptoms. P.o. tolerant. Ambulatory. Having normal bowel and bladder movements. Reason For Visit: RHABDOMYOLYSIS, ELEVATED LFTS Physical Exam Vital Signs: Temp Pulse Resp BP Pulse Ox 98.0 F 56 L 18 150/48 H 96 08/09/19 09:43 08/09/19 09:43 08/09/19 09:43 08/09/19 09:43 08/09/19 09:43 Intake & Output 08/08/19 08/09/19 08/10/19 05:59 06:59 06:59 Intake Total Output Total Balance Weight General appearance: PRESENT: no acute distress, well-developed, well-nourished Head exam: PRESENT: atraumatic, normocephalic Respiratory exam: PRESENT: clear to auscultation david. ABSENT: rales, rhonchi, wheezes Cardiovascular exam: PRESENT: RRR. ABSENT: diastolic murmur, rubs, systolic murmur GI/Abdominal exam: PRESENT: normal bowel sounds, soft. ABSENT: distended, guarding, mass, organolmegaly, rebound, tenderness Musculoskeletal exam: PRESENT: tenderness Neurological exam: PRESENT: alert, awake, oriented to person, oriented to place, oriented to time, oriented to situation, CN II-XII grossly intact. ABSENT: motor sensory deficit Results Laboratory Results: 08/08/19 05:27 08/09/19 04:58 08/09/19 04:58 Sodium 140.2 Potassium 4.3 Chloride 108 H Carbon Dioxide 26 Anion Gap 6 BUN 10 Creatinine 0.80 Est GFR ( Amer) > 60 Glucose 102 Calcium 9.4 Total Bilirubin 0.3 AST 1108 H Alkaline Phosphatase 39 Total Protein 6.1 L Albumin 3.6 08/06/19 08/07/19 08/07/19 14:22 04:25 04:25 Creatine Kinase > 330278 H > 418896 H CK-MB (CK-2) 21.50 H 08/08/19 08/09/19 05:27 04:58 Creatine Kinase 16047 H 08417 H CK-MB (CK-2) Assessment and Plan - Diagnosis (1) Rhabdomyolysis Qualifiers: Rhabdomyolysis type: non-traumatic Qualified Code(s): M62.82 - Rhabdomy olysis Is this a current diagnosis for this admission?: Yes Plan: Due to heavy workout session including heavy lifting. Denies any trauma. Presented with CK level >160,000. CK trending down. CBC CMP WNL. Renal function WNL. Adequate urine output. Continue aggressive volume resuscitation guided by volume status Monitor electrolytes and replace as needed. Monitor liver function. Monitor kidney function. Strict in and out. (2) Elevated LFTs Is this a current diagnosis for this admission?: Yes Plan: Likely due to rhabdomyolysis. Predominantly AST. Presented with AST of 2005. LFTs are trending down. Denies any history of hepatitis. Monitor LFTs. LFTs tomorrow. (3) Dehydration Is this a current diagnosis for this admission?: Yes Plan: Volume replete. Continue volume resuscitation guided by volume status. Monitor vitals. Monitor in and out.
[2019-08-09] MEDS: MORPHINE SULFATE 10 MG/ML INJ IV PRN ×2 (12:08→18:22)
[2019-08-09] MEDS: HYDRALAZINE HCL INJ/PF 20 MG/1 ML SDV IV PRN (13:42)
[2019-08-09] MEDS: HYDROMORPHONE HCL INJ/PF 2 MG/ML AMPULE IV PRN (14:42)
[2019-08-09] MEDS ORDERED: KETOROLAC TROMETHAMINE INJ/PF 30 MG/1 ML SDV ONE (15:03)
[2019-08-09] MEDS ORDERED: KETOROLAC TROMETHAMINE INJ/PF 30 MG/1 ML SDV IV ONE (15:15)
[2019-08-09] MEDS ORDERED: LABETALOL HCL INJ 20 MG/4 ML DISP.SYRIN IV ONE ×2 (17:00→17:15)
[2019-08-09] MEDS: ONDANSETRON HCL INJ/PF 4 MG/2 ML SDV IV PRN (17:14)
[2019-08-09] MEDS ORDERED: LABETALOL HCL INJ 20 MG/4 ML DISP.SYRIN IV PRN ×3 (18:27→23:14)
[2019-08-09] MEDS ORDERED: NORMAL SALINE 1000 ML 1,000 ML IV PRN ×3 (18:28→23:13)
[2019-08-09] MEDS ORDERED: AMLODIPINE BESYLATE 2.5 MG TABLET PO ONE (18:45)
[2019-08-09] MEDS: MELATONIN 5 MG TABLET PO SCH (22:55)
[2019-08-09] MEDS: DIPHENHYDRAMINE HCL 25 MG CAPSULE PO PRN (22:55)
[2019-08-10] MEDS ORDERED: HYDROMORPHONE HCL INJ/PF 2 MG/ML AMPULE IV PRN (00:30)
[2019-08-10] MEDS: METHADONE HCL 10 MG TABLET PO SCH (03:52)
[2019-08-10 05:31] LABS: ALBUMIN 3.8 g/dL (3.5-5.0); ALKALINE PHOSPHATASE 48 U/L (38-126); ANION GAP 6 (5-19); BILIRUBIN,TOTAL 0.5 mg/dL (0.2-1.3); BLOOD UREA NITROGEN 9 mg/dL (7-20); CARBON DIOXIDE 30 mmol/L (22-30); CHLORIDE 103 mmol/L (98-107); GLUCOSE 105 mg/dL (75-110); POTASSIUM 4.4 mmol/L (3.6-5.0); TOTAL PROTEIN 6.5 g/dL (6.3-8.2)
[2019-08-10 05:38] LABS: ASPARTATE AMINO TRANSFERASE 735 U/L (17-59)
[2019-08-10 05:50] LABS: CREATINE KINASE 28179 U/L (55-170)
[2019-08-10] MEDS: HEPARIN SOD (PORCINE) 5,000 UNIT/ML 1 ML VIAL SUBCUT SCH ×3 (06:50→21:55)
[2019-08-10] MEDS: PANTOPRAZOLE SODIUM 40 MG TABLET.DR PO SCH ×2 (06:52→17:54)
[2019-08-10] MEDS: ONDANSETRON HCL INJ/PF 4 MG/2 ML SDV IV PRN (07:19)
[2019-08-10] MEDS: TIZANIDINE HCL 4 MG TABLET PO SCH ×3 (09:30→17:54)
[2019-08-10] MEDS ORDERED: AMLODIPINE BESYLATE 2.5 MG TABLET PO SCH (10:00)
[2019-08-10] MEDS ORDERED: NORMAL SALINE 1000 ML 1,000 ML IV ONE (10:00)
[2019-08-10] MEDS: NORMAL SALINE 1000 ML 1,000 ML IV PRN ×3 (12:22→23:08)
--- NOTE | 2019-08-10 13:03 | PDOC PROGRESS REPORT ---
Subjective Progress Note for:: 08/10/19 Subjective:: Patient states that the stiffness and pain in his left shoulders have improved significantly. Anxious to get home. Admits to having resumed working out heavily after being off any kind of exercising for quite some time. Reason For Visit: RHABDOMYOLYSIS, ELEVATED LFTS Physical Exam Vital Signs: Temp Pulse Resp BP Pulse Ox 98.6 F 65 17 144/73 H 97 08/10/19 11:15 08/10/19 11:15 08/10/19 11:15 08/10/19 11:15 08/10/19 11:15 Intake & Output 08/09/19 08/10/19 08/11/19 06:59 06:59 06:59 Intake Total 4750 Output Total 1300 Balance 3450 Weight 91.4 kg General appearance: PRESENT: no acute distress, cooperative Neck exam: ABSENT: JVD Respiratory exam: PRESENT: clear to auscultation david Cardiovascular exam: PRESENT: +S1, +S2 Neurological exam: PRESENT: alert, awake Results Laboratory Results: 08/08/19 05:27 08/10/19 04:49 08/10/19 04:49 Sodium 138.6 Potassium 4.4 Chloride 103 Carbon Dioxide 30 Anion Gap 6 BUN 9 Creatinine 0.81 Est GFR ( Amer) > 60 Glucose 105 Calcium 10.0 Total Bilirubin 0.5 AST 735 H Alkaline Phosphatase 48 Total Protein 6.5 Albumin 3.8 08/06/19 08/07/19 08/07/19 14:22 04:25 04:25 Creatine Kinase > 197647 H > 935877 H CK-MB (CK-2) 21.50 H 08/08/19 08/09/19 08/10/19 05:27 04:58 04:49 Creatine Kinase 29582 H 64800 H 02152 H CK-MB (CK-2) Assessment and Plan - Diagnosis (1) Rhabdomyolysis Qualifiers: Rhabdomyolysis type: non-traumatic Qualified Code(s): M62.82 - Rhabdomyolysis Is this a current diagnosis for this admission?: Yes (2) Dehydration Is this a current diagnosis for this admission?: Yes - Plan Summary Summary: Patient's elevated transaminases are likely secondary to rhabdomyolysis. Dehydration has resolved at this point. His rhabdomyolysis continues to improve and his CK is down to 20,000s. I will continue IV fluids today and increase rate to 200 cc/h and also give 1 L normal saline bolus and recheck CK again tomorrow. No evidence of EDWARD/ATN at this time and patient is having good urinar y output. - Time Time Spent with patient: Less than 15 minutes
[2019-08-10] MEDS: MELATONIN 5 MG TABLET PO SCH (21:53)
[2019-08-10] MEDS: DIPHENHYDRAMINE HCL 25 MG CAPSULE PO PRN (21:53)
[2019-08-11] MEDS: METHADONE HCL 10 MG TABLET PO SCH (03:09)
[2019-08-11] MEDS: ONDANSETRON HCL INJ/PF 4 MG/2 ML SDV IV PRN (03:10)
[2019-08-11] MEDS: NORMAL SALINE 1000 ML 1,000 ML IV PRN (04:36)
[2019-08-11] MEDS: HEPARIN SOD (PORCINE) 5,000 UNIT/ML 1 ML VIAL SUBCUT SCH (05:07)
[2019-08-11] MEDS: PANTOPRAZOLE SODIUM 40 MG TABLET.DR PO SCH (05:07)
[2019-08-11 05:38] LABS: ALBUMIN 4.2 g/dL (3.5-5.0); ALKALINE PHOSPHATASE 48 U/L (38-126); ANION GAP 11 (5-19); ASPARTATE AMINO TRANSFERASE 479 U/L (17-59); BILIRUBIN,TOTAL 0.4 mg/dL (0.2-1.3); BLOOD UREA NITROGEN 11 mg/dL (7-20); CALCIUM 9.7 mg/dL (8.4-10.2); CARBON DIOXIDE 26 mmol/L (22-30); CHLORIDE 104 mmol/L (98-107); GLUCOSE 112 mg/dL (75-110); POTASSIUM 4.7 mmol/L (3.6-5.0)
[2019-08-11 06:09] LABS: CREATINE KINASE 8142 U/L (55-170)
[2019-08-11 09:38] VITALS: BP 137/62
--- NOTE | 2019-08-11 10:34 | PDOC DISCHARGE SUMMARY ---
Impression - Admit/DC Date/PCP Admission Date/Primary Care Provider: 08/06/19 18:07 Discharge Date: 08/11/19 - Discharge Diagnosis (1) Rhabdomyolysis Is this a current diagnosis for this admission?: Yes (2) Dehydration Is this a current diagnosis for this admission?: Yes (3) Hypertension Is this a current diagnosis for this admission?: Yes - Assessment Summary: Patient presented with severe muscle aches after having excessive workout sessions after not working out for a while. His rhabdomyolysis noted in the ER was likely secondary to his excessive workout with CK levels over 160,000. Patient was also noted to have elevated transaminases as well secondary to his rhabdomyolysis. Patient received aggressive IV fluids and pain medication for his muscle aches. Was also started on amlodipine small dose of 2.5 mg daily for his history of untreated hypertension. His creatinine kinase levels have improved and his last level today was in the 8000 which shows remarkable improvement from his presentation. Patient's muscle aches and symptoms have significantly improved patient is stable for discharge at this time. He will follow-up with his primary care provider and has been encouraged to drink lots of fluids and refrain from working out for now. - Additional Information Discharge Diet: Regular Discharge Activity: Slowly Increase Activity Referrals: AMIE RANGEL NP [NURSE PRACTITIONER] - 08/18/19 10:30 am Prescriptions: Amlodipine Besylate [Norvasc 2.5 mg Tablet] 2.5 mg PO DAILY #30 tablet Home Medications: Methadone HCl 120 mg PO DAILY 08/06/19 Amlodipine Besylate [Norvasc 2.5 mg Tablet] 2.5 mg PO DAILY #30 tablet 08/11/19 History of Present Illiness History of Present Illness: MELE ALMEIDA is a 39 year old male past medical history of untreated hypertension presenting to ED complaining of muscle sore and cola colored urine after heavy workout session at the gym. Patient is attending gym regularly but recently but had a stopped for a while and recently went back to gym with a friend where the above did a heavy workout session weight lifting. Patient is stating the following day he started feeling sore around his neck, shoulders, abdomen, lower extremity patient with nausea, he also noted his urine to be turning darker. Patient looked up his symptoms over the Internet and found out that he may have rhabdomyolysis. 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 In ED was found to have a CK level of more than 160,000 and AST of 2000. Hospitalist consulted for admission. Physical Exam Vital Signs: Temp Pulse Resp BP Pulse Ox 98.0 F 56 L 18 147/67 H 97 08/11/19 09:33 08/11/19 09:33 08/11/19 09:33 08/11/19 09:33 08/11/19 09:33 Intake & Output 08/10/19 08/11/19 08/12/19 06:59 06:59 06:59 Intake Total 4750 4349 Output Total 1300 2650 Balance 3450 1699 Weight 91.4 kg 92.2 kg General appearance: PRESENT: no acute distress, cooperative Neck exam: ABSENT: JVD Neurological exam: PRESENT: alert, awake Results Laboratory Results: WBC 7.1 10^3/uL (4.0-10.5) 08/08/19 05:27 RBC 5.71 10^6/uL (4.35-5.55) H 08/08/19 05:27 Hgb 16.6 g/dL (13.5-17.0) 08/08/19 05:27 Hct 47.9 % (37.9-51.0) 08/08/19 05:27 MCV 84 fl (80-97) 08/08/19 05:27 MCH 29.0 pg (27.0-33.4) 08/08/19 05:27 MCHC 34.6 g/dL (32.0-36.0) 08/08/19 05:27 RDW 13.8 % (11.5-14.0) 08/08/19 05:27 Plt Count 157 10^3/uL (150-450) 08/08/19 05:27 Lymph % (Auto) 15.2 % (13-45) 08/07/19 04:25 [place] % (Auto) 6.0 % (3-13) 08/07/19 04:25 Eos % (Auto) 2.9 % (0-6) 08/07/19 04:25 Baso % (Auto) 0.4 % (0-2) 08/07/19 04:25 Absolute Neuts (auto) 7.9 10^3/uL (1.7-8.2) 08/07/19 04:25 Absolute Lymphs (auto) 1.6 10^3/uL (0.5-4.7) 08/07/19 04:25 Absolute Monos (auto) 0.6 10^3/uL (0.1-1.4) 08/07/19 04:25 Absolute Eos (auto) 0.3 10^3/uL (0.0-0.6) 08/07/19 04:25 Absolute Basos (auto) 0.0 10^3/uL (0.0-0.2) 08/07/19 04:25 Seg Neutrophils % 75.5 % (42-78) 08/07/19 04:25 Sodium 140.8 mmol/L (137-145) 08/11/19 04:57 Potassium 4.7 mmol/L (3.6-5.0) 08/11/19 04:57 Chloride 104 mmol/L (98-107) 08/11/19 04:57 Carbon Dioxide 26 mmol/L (22-30) 08/11/19 04:57 Anion Gap 11 (5-19) 08/11/19 04:57 BUN 11 mg/dL (7-20) 08/11/19 04:57 Creatinine 0.86 mg/dL (0.52-1.25) 08/11/19 04:57 Est GFR ( Amer) > 60 (>60) 08/11/19 04:57 Est GFR (MDRD) Non-Af > 60 (>60) 08/11/19 04:57 Glucose 112 mg/dL (75-110) H 08/11/19 04:57 Calcium 9.7 mg/dL (8.4-10.2) 08/11/19 04:57 Total Bilirubin 0.4 mg/dL (0.2-1.3) 08/11/19 04:57 Direct Bilirubin 0.0 mg/dL (0.0-0.4) 08/11/19 04:57 Neonat Total Bilirubin Not Reportable 08/11/19 04:57 Neonat Direct Bilirubin Not Reportable 08/11/19 04:57 Neonat Indirect Bili Not Reportable 08/11/19 04:57 AST 479 U/L (17-59) H 08/11/19 04:57 ALT 322 U/L (<50) H 08/11/19 04:57 Alkaline Phosphatase 48 U/L (38-126) 08/11/19 04:57 Creatine Kinase 8142 U/L (55-170) H 08/11/19 04:57 CK-MB (CK-2) 21.50 ng/mL (<4.55) H 08/07/19 04:25 Total Protein 7.0 g/dL (6.3-8.2) 08/11/19 04:57 Albumin 4.2 g/dL (3.5-5.0) 08/11/19 04:57 Urine Color MONICA 08/06/19 14:22 Urine Appearance CLEAR 08/06/19 14:22 Urine pH 6.0 (5.0-9.0) 08/06/19 14:22 Ur Specific [place] 1.014 08/06/19 14:22 Urine Protein 100 mg/dL (NEGATIVE) H 08/06/19 14:22 Urine Glucose (UA) NEGATIVE mg/dL (NEGATIVE) 08/06/19 14:22 Urine Ketones NEGATIVE mg/dL (NEGATIVE) 08/06/19 14:22 Urine Blood LARGE (NEGATIVE) H 08/06/19 14:22 Urine Nitrite NEGATIVE (NEGATIVE) 08/06/19 14:22 Urine Bilirubin NEGATIVE (NEGATIVE) 08/06/19 14:22 Urine Urobilinogen NEGATIVE mg/dL (<2.0) 08/06/19 14:22 Ur Leukocyte Esterase NEGATIVE (NEGATIVE) 08/06/19 14:22 Urine WBC (Auto) 1 /HPF 08/06/19 14:22 Urine RBC (Auto) 0 /HPF 08/06/19 14:22 Urine Bacteria (Auto) TRACE /HPF 08/06/19 14:22 Urine Mucus (Auto) RARE /LPF 08/06/19 14:22 Urine Ascorbic Acid NEGATIVE (NEGATIVE) 08/06/19 14:22 Urine Opiates Screen NEGATIVE 08/06/19 14:22 Urine Methadone Screen UNCONFIRMED POSITIVE 08/06/19 14:22 Ur Barbiturates Screen NEGATIVE 08/06/19 14:22 Ur Phencyclidine Scrn NEGATIVE 08/06/19 14:22 Ur Amphetamines Screen NEGATIVE 08/06/19 14:22 U Benzodiazepines Scrn NEGATIVE 08/06/19 14:22 Urine Cocaine Screen NEGATIVE 08/06/19 14:22 U Marijuana (THC) Screen NEGATIVE 08/06/19 14:22 08/07/19 04:25 CK-MB (CK-2) 21.50 H Plan Time Spent: Less than 30 Minutes Stroke Is this a Stroke Patient?: No Acute Heart Failure - Is this a Heart Failure Patient?: No
== END 2019-08-11 11:02 | disposition home or self-care (01) | DRG 558 ==
LOC: ER 13:44 → EH 18:07 → 3N 20:00
PROVIDERS: ADMIT Internal Medicine; ATTEND Internal Medicine
DX: M62.82 Rhabdomyolysis (principal); F11.20 Opioid dependence, uncomplicated; E86.0 Dehydration; I10 Essential (primary) hypertension; F17.210 Nicotine dependence, cigarettes, uncomplicated
CPT/HCPCS: 36415; 80048; 80053; 80076; 80307; 81001; 82550; 82553; 85025; 85027; 96361; 96374; 99284; J0360; J1170; J1885; J2270; J2405; J2550; J3490; J7030